=== PATIENT | female | born 1950 | race Caucasian/White ===

== ENCOUNTER 2017-10-26 12:02 | Emergency (ER) | payer MEDICARE, OTHER, SELFPAY ==
[2017-10-26 12:03] VITALS: BP 175/72; PULSE 105; RESP 18; TEMP 36.6; O2SAT 93; BMI 39.9
--- NOTE | 2017-10-26 12:16 | EKG12_ITS ---
Test Reason : SOB Blood Pressure : / mmHG Vent. Rate : 100 BPM Atrial Rate : 100 BPM P-R Int : 132 ms QRS Dur : 078 ms QT Int : 336 ms P-R-T Axes : 044 032 039 degrees QTc Int : 433 ms Normal sinus rhythm Nonspecific ST abnormality Abnormal ECG Confirmed by MONICA DUBOSE ([id number]), rewrite editor NABIL RODRIGUEZ ([id number] on 11/08/2017 5:57:37 PM Referred By: RODRICK Confirmed By:MONICA DUBOSE
[2017-10-26 12:28] VITALS: O2SAT 95
[2017-10-26 12:39] LABS: Absolute Lymphocyte Count 2.26 X10^3/ul (0.83-4.51); Absolute Neutrophil Count 11.2 X10^3/uL (2.0-7.7); Basophil# 0.01 X10^3/uL; Basophil% 0.1 % (0-1); Eosinophil# 0.03 X10^3/uL; Eosinophils% 0.2 % (0-5); Hematocrit 38.9 % (37-47); Hemoglobin 13.7 g/dl (12.0-15.0); Lymphocyte # 2.26 X10^3/ul (4.0); Lymphocyte % 15.7 % (19-41); Mean Corp Hgb Conc 35.2 g/gl (32-36); Mean Corpuscular Hgb 31.9 pg (27.0-32.0); Mean Corpuscular Volume 90.7 fL (81-99); Mean Platelet Vol. 9.3 fl (6.2-12.0); Monocyte# 0.83 X10^3/uL; Monocyte% 5.8 % (0-10); Neutrophil # 11.18 X10^3/uL (2.7-7.7); Neutrophil % 77.9 % (47-70); Platelet Count 155 K/mm3 (150-450); RBC Distribution Width SD 39.6 fl (35.1-43.9); Red Blood Count 4.29 M/mm3 (4.2-5.4); White Blood Count 14.4 K/mm3 (4.4-11.0)
[2017-10-26 12:41] LABS: POSITIVE COUNT NO; POSITIVE DIFFERENTIAL NO; POSITIVE MORPHOLOGY NO
[2017-10-26 12:57] LABS: Anion Gap 12 (5-15); BUN 13 mg/dL (7-18); BUN/Creat Ratio 15.8 RATIO (10-20); Chloride 99 mmol/L (98-107); Creatinine, Serum 0.82 mg/dL (0.55-1.02); EST Glomerular Filtration Rate 74 mL/min (>60); Est Glom Filt Rate - Afr Amer 90 mL/min (>60); Estimated Creatinine Clearance 61.55 ml/min; Glucose 172 mg/dL (74-106); Potassium 3.3 mmol/L (3.5-5.1); Sodium Level 136 mmol/L (136-145)
[2017-10-26 13:05] LABS: International Normalized Ratio 1.9
--- NOTE | 2017-10-26 13:05 | RAD_ITS ---
STUDY: X-RAY CHEST REASON FOR EXAM: Female, 67 years old. Cough, shortness of breath, chills. TECHNIQUE: PA and lateral views of the chest. COMPARISON: None. FINDINGS: Mild elevation and lobulation of the right diaphragm, which may reflect a localized show eventration of the mid diaphragm. The lungs are otherwise clear and expanded. There is no demonstrated pleural abnormality. Normal size heart. Normal mediastinum and ashely. Normal visualized pulmonary arteries. Normal visualized aortic arch and descending thoracic aorta. There are multilevel degenerative changes of the visualized thoracic spine. Normal visualized ribs, clavicles, and shoulders. There is no demonstrated abnormality of the visualized soft tissue structures of the upper abdomen. RAD/Chest PA and Lateral IMPRESSION: No acute cardiopulmonary disease. Electronically Signed: Edward Marquez MD at 13:25 EDT , Service support ,
--- NOTE | 2017-10-26 13:17 | CT_ITS ---
STUDY: CTA CHEST/THORAX REASON FOR EXAM: Female, 67 years old. Shortness of breath, cough, congestion. RADIATION DOSAGE (If Supplied By Facility): CTDIvol = ( 16.62 ) mGy, DLP = ( 707.05 ) mGycm TECHNIQUE: The examination was performed with the intravenous administration of 100ML ml of Isovue 370 contrast material. Post-processing of the angiographic images was performed, with multiplanar reformation and 3D reconstruction. Individualized dose optimization techniques were used for this CT. COMPARISON: PA and lateral chest x-ray 1236 hours. FINDINGS: Suboptimal enhancement of the main pulmonary artery and right and left pulmonary arteries for the exclusion of pulmonary emboli. Suboptimal enhancement of the bilateral peripheral pulmonary arteries. There is no overt pulmonary embolism. Normal thoracic aorta and visualized great vessels. There is no demonstrated aortic dissection. Normal heart and pericardium. There are several nonspecific lymph nodes in the mediastinum. A 2.6 x 1.5 x 1.0 cm right subcarinal lymph node present. There is mild bilateral hilar adenopathy. Normal visualized trachea and bronchi. There is mild elevation of right diaphragm. There are ill-defined groundglass infiltrates suspicious for pneumonia in the bilateral posterior basilar lower lobes. Vaguely defined 2.6 cm groundglass density in the posterior left upper lobe at the mid chest also suggests an inflammatory/infectious focus. Metal airspace disease in the anteromedial basilar right middle lobe may be subsegmental atelectasis, but additional infection difficult to exclude. Focal scar seen in the anterior superior margin of the right middle lobe, with some distortion of the adjacent minor fissure. Normal pleura. Normal chest wall structures. There are multilevel degenerative changes of the thoracic spine. There are degenerative arthrosis of the bilateral glenohumeral articulations. There is a small hiatal hernia. CT/CTA Chest W/WO Contrast IMPRESSION: 1. Bilateral posterior basilar lower lobe pneumonic infiltrates, as well as 2.6 cm groundglass site of inflammation/infection in the posterior left upper lobe, accompanied by reactive hilar and mediastinal adenopathy. 2. Small hiatal hernia. 3. Degenerative changes of the spine and shoulders. Electronically Signed: Edward Marquez MD at 14:37 EDT , Service support ,
--- NOTE | 2017-10-26 15:18 | ED.VISSUMM ---
- ER Visit Summary Date of Service: 10/26/17 Chief Complaint: Shortness of breath and cough History of Present Illness: The patient is a 67 F with cough, congestion, shortness of breath for the past 2 weeks. She is bringing up yellow colored sputum. She has had subjective fever and chills. She was seen at urgent care where her O2 sat was noted to be 89% on room air. She is given albuterol treatment with no change in her oxygen saturation. Past history significant for multiple PEs and she is currently on Coumadin. She also has history of asthma, hypertension, prior [place], and hypothyroidism. Physical Examination: Vital signs include a blood pressure 175/72, temperature 98, heart rate 105, respiratory rate 18, pulse ox 93% on room air. Head neck examination is grossly unremarkable. Heart is tachycardic and regular. Lung sounds are coarse at the left base. Good air movement noted overall. She is in no distress. Abdomen is soft nontender. Lower exam examination reveals no calf tenderness or edema. Test Results: EKG is sinus at 100 with no sign of acute ischemia. Two-view chest x-ray is unremarkable. CBC was a white count of 14.4 with 77% neutrophils. Chemistry studies show potassium 3.3 and a glucose of 172. Her INR is slightly subtherapeutic at 1.9. She states 2 weeks ago was 2.6. CT of the chest is obtained and reveals bilateral posterior lower lobe infiltrates. There is a 2.6 cm area of inflammation or infection the posterior left upper lobe also. Emergency Department Course and Treatment: Patient was observed throughout her stay. Her oxygen saturations maintained between 90 and 95% on room air. At this time she feels well. She wishes to go home. Should be given Levaquin and albuterol with specific return instructions if she worsens. Treatment Plan: [] Disposition: Discharge Impression: Community acquired pneumonia This note was generated with [employer] dictation software. It may contain incorrect words, spelling, and punctuation that were not noted in review of the chart prior to signing ED Disposition - Plan for ED Patient: Disposition: Home or Assisted Living Chief Complaint: Shortness of Breath Instructions: ED Pneumonia Adult Prescriptions: Albuterol Inhaler [Ventolin Hfa] 1 - 2 puff INHALATION Q4H PRN PRN #1 inhaler PRN Reason: Wheezing Levofloxacin [Levaquin] 750 mg PO DAILY #4 tablet Referrals: Ruel Narayanan MD [Primary Care Provider] - 1 Week
[2017-10-26] MEDS: levoFLOXacin 750 MG Tablet PO (15:30)
[2017-10-26 15:31] VITALS: BP 154/68; PULSE 89; RESP 16; O2SAT 94
== END 2017-10-26 15:35 | disposition home or self-care (01) ==
PROVIDERS: Emergency Provider Emergency Medicine; Family Provider Family Medicine; PCP Family Medicine
DX: J18.9 Pneumonia, unspecified organism (principal); E03.9 Hypothyroidism, unspecified; J45.909 Unspecified asthma, uncomplicated; I25.2 Old myocardial infarction; I10 Essential (primary) hypertension; Z86.711 Personal history of pulmonary embolism; Z79.01 Long term (current) use of anticoagulants; I25.10 Atherosclerotic heart disease of native coronary artery without angina pectoris; Z79.899 Other long term (current) drug therapy
CPT/HCPCS: 71046; 71275; 80048; 85025; 85610; 93005; 99285; Q9967; A4216

== ENCOUNTER → 2017-11-01 11:43 | Outpatient (CLI) | payer MEDICARE, OTHER, SELFPAY ==
--- NOTE | 2017-11-01 11:43 | DT_ITS ---
This patient was seen during an EMR downtime November 01, 2017 - November 08, 2017. This patient may have a combination of paper and electronic documentation or all paper documentation. All documentation is viewable within the e-chart portion of [email or web address] for each patient visit.
[2017-11-05 20:45] LABS: International Normalized Ratio 2.3; Prothrombin Time (Protime)PT. 25.3 SECONDS (11.7-14.9)
== END ==
PROVIDERS: Family Provider Family Medicine; PCP Family Medicine; Visit Provider Family Medicine
DX: I26.99 Other pulmonary embolism without acute cor pulmonale (principal); Z79.01 Long term (current) use of anticoagulants
CPT/HCPCS: 85610

== ENCOUNTER → 2019-06-13 09:30 | Outpatient (CLI) | payer MEDICARE, OTHER, SELFPAY ==
--- NOTE | 2019-06-13 10:00 | MRI_ITS ---
STUDY: MRI CERVICAL SPINE WITHOUT CONTRAST REASON FOR EXAM: Female, 68 years old. Cervical stenosis neck pain TECHNIQUE: Standardized fat and water weighted pulse sequences were obtained in the sagittal and axial planes. COMPARISON: None FINDINGS: Craniocervical junction and cervical spine are intact and aligned with normal marrow. Paravertebral soft tissues are normal. There is severe subcutaneous lipomatosis with dorsal cervical loculation. C2-C3 has a right subarticular disc endplate osteophyte with mild right-sided cord compression and severe right foraminal stenosis. Left foramen and central canal are patent. C3-C4 has patent canal. Right foramen is moderately stenotic, left foramen is patent. C4-C5 has patent canal. Foramina are moderately stenotic bilaterally. C5-C6 has mild spondylotic cord compression disc endplate osteophytes. Foramina are moderately to severely stenotic bilaterally. C6-C7 has minor cord compression with moderate left foraminal stenosis and patent right foramen. C7-T1 has patent canal and foramina. Spinal cord is normal in size and signal with mild flattening of the compressing levels. MRI/Spine Cervical (Routine) IMPRESSION: 1. Mild central C5-C6, mild right sided C2-C3 cord compression. 2. Multilevel foraminal stenoses. 3. Dorsal cervical lipodystrophy, endocrinology referral is advised. 4. Obstructive sleep apnea. Electronically Signed: Matilda Lang, at 17:57 EST Tel , Service support ,
== END ==
PROVIDERS: Family Provider Family Medicine; PCP Family Medicine
DX: M48.02 Spinal stenosis, cervical region (principal)
CPT/HCPCS: 72141

== ENCOUNTER 2024-12-05 23:47 | Inpatient (IN) | payer MEDICARE, OTHER, SELFPAY ==
[2024-12-05 23:48] VITALS: BP 194/96; PULSE 98; RESP 20; TEMP 36.4; O2SAT 97; BMI 40.2
[2024-12-06] VITALS (8 sets, daily range): BP systolic 110–190; BP diastolic 60–89; PULSE 74–96; RESP 12–18; TEMP 36.2–36.7; O2SAT 95–99; BMI 39.4
--- NOTE | 2024-12-06 00:15 | RAD_ITS ---
PROCEDURE: CHEST 1 VIEW (PORTABLE) 12/06/2024 REASON FOR EXAM: CHEST PAIN TECHNIQUE: Frontal view of the chest. COMPARISON: None FINDINGS: Both lung stahl are clear with no evidence of nodules or infiltrates. No pneumothorax or pleural effusion noted bilaterally. Heart size and its configuration appear to be within normal limits. Both the ashely appear normal. Thoracic rib cage is intact. RAD/Chest 1 View (Portable) IMPRESSION: No evidence of acute cardiopulmonary disease. Reading Location[facility] [place] [id number]
--- NOTE | 2024-12-06 00:26 | EDS_ITS ---
HPI History of Present Illness Chief Complaint: Chest Pain [facility] Medical History (Updated 12/06/24 @ 01:[address] Sy Cope, DO) Diabetes Heart attack Hypothyroid HTN (hypertension) Pulmonary embolism Clotting disorder Home Medications ?Medication ?Instructions ?Recorded ?Last Taken ?Type albuterol sulfate 90 mcg/actuation 1 - 2 puff inhalati on Q4H PRN PRN 10/26/17 Unknown Rx aerosol inhaler (Ventolin HFA) Wheezing ##1 enalapril maleate 10 mg tablet 10 mg PO DAILY 10/26/17 10/26/17 History (Vasotec) levofloxacin 750 mg tablet 750 mg PO DAILY #4 tabs Unknown Rx (Levaquin) levothyroxine 125 mcg tablet 125 mcg PO DAILY 10/26/17 10/26/17 History warfarin 2 mg tablet (Jantoven) 2 mg PO SUMOTUWETHFR 0 10/26/17 10/26/17 History warfarin 1 mg tablet (Jantoven) 1 mg PO QWEEK 12/06/24 Unknown History Allergy/AdvReac Type Severity Reaction Status Date / Time No Known Allergies Allergy Verified 12/05/24 23:49 Social History Smoking Status: Never smoker EXAM Physical Exam Const Vital Signs: 12/05/24 23:48 12/06/24 00:28 12/06/24 00:48 Temperature 97.6 F L Temperature Source Oral Pulse Rate 98 81 Respiratory Rate 20 H 12 Respiratory Effort Normal Blood Pressure 194/96 H 187/89 H Blood Pressure Mean 128 121 Pulse Ox 97 99 Oxygen Delivery Method Room Air 12/06/24 01:00 12/06/24 01:07 Temperature Temperature Source Pulse Rate 81 Respiratory Rate 14 Respiratory Effort Blood Pressure 190/86 H Blood Pressure Mean 120 Pulse Ox 98 Oxygen Delivery Method Room Air MDM MDM MDM Narrative Medical decision making narrative: HISTORY OF PRESENT ILLNESS: Chief complaint: Chest pain 74-year-old female history of PE on warfarin, hypertension, hypothyroidism presents with chest pain that radiates to left shoulder that began at 5 PM. She states she has no chest pain currently. This lasted for several minutes. Denies syncope. Denies focal numbness or weakness. Denies cough fever or chills. Notes compliance with home warfarin. No missed doses. No bleeding diathesis. No she was recently started antibiotic for UTI by her primary care physician. She notes approximately 5 episodes of loose watery stools a day for last several days. Denies abdominal pain. REVIEW OF SYSTEMS: Pertinent positives: Chest pain, diarrhea Pertinent negatives: As per [facility] PHYSICAL EXAM: Nursing triage notes reviewed, Vital signs reviewed Constitutional: please see [facility] HENT: MMM Eyes: Pupils equal round and reactive to light, Extraocular muscles intact Neck: No stridor, no JVD, full neck ROM Lungs: Clear to auscultation, No wheezing or rales. No increased work of breathing, no conversational dyspnea, no accessory muscle use, no nasal flaring. No respiratory distress noted Heart: Regular rate and rhythm, No murmurs, No rubs and No gallops, 2+ distal pulses (radial, femoral, posterior tibial) in all extremities Abdomen: Soft, there is no tenderness, rigidity, rebound or guarding, no obvious peritoneal signs, no palpable pulsatile abdominal masses, no auscultated abdominal bruit : No CVAT Extremities: No edema Neuro: No new focal neurological deficits, cranial nerves II through XII intact, 5/5 strength in all present extremities. Intact sensation to light touch in all present extremities, 2+ reflexes bilateral patella tendons. Skin: No rash or lesions noted MEDICAL DECISION MAKING: Chief Complaint: please see [facility] External records reviewed: Reviewed prior cardiovascular testing no recent cardiac catheterizations, stress test or echocardiogram as noted in the chart Factors affecting care: PE, hypertension, hypothyroidism Social determinants of health: Elderly History obtained from others: Consults: Internal medicine (Dr. Lau)?accepted patient to PCU full [facility] Narrative: The patient was initially hypertensive with a blood pressure 194/96, tachypneic with respiratory 20, saturating 97% on room air. Exam without focal cardiopulmonary normalities. No signs of focal neurologic deficit. I considered the following differential diagnosis: ACS, anemia, arrhythmia, electrolyte disturbance, PE, aortic dissection I obtained a broad lab and imaging workup to further determine if the patient was suffering from a life-threatening etiology. Initially we will try to lower the patient's blood pressure with oral lisinopril which is analogous to her home enalapril. Also ordered nitroglycerin to be given as needed for chest pain. No nitro was given because the patient was chest pain-free while in the ED. ALL IMAGES (IF OBTAINED) HAVE BEEN PERSONALLY REVIEWED AND INTERPRETED BY MY SELF. EKG with normal sinus rhythm rate 95, normal axis, normal intervals, no obvious STEMI CBC with leukocytosis suggestive of systemic summation, no anemia or thrombocytopenia noted INR slightly subtherapeutic at 1.9 BMP with severe hyponatremia with a normal blood glucose, no other significant electrolyte O'Taylor's, no sign of metabolic acidosis or endorgan hypoperfusion, no sign of acute kidney injury High-sensitivity troponin is negative, no evidence of myocardial ischemia BNP within normal no suggestive no sign of heart failure I have personally reviewed the patient's chest x-ray. Chest x-ray is unremarkable for pulmonary edema, pneumothorax, pneumonia or focal cardiopulmonary abnormality. Given severe hyponatremia will admit the patient. Suspect related to dehydration from diarrhea. Patient remained hypertensive despite oral lisinopril we will continue to monitor does not appear to be any endorgan damage. Was gone initially give 1 L normal saline bolus however hospitalist Dr. Lau recommended 150 cc infusion as opposed to bolus as does not correct her sodium too quickly. The patient and/or family, caregivers express understanding. The patient and/or family, caregivers agrees with the plan. Shared decision making: I will have a discussion with the patient and or visitors regarding risk/benefits of further testing or admission. They will be made aware of of the risk/benefits inherent in this decision they will be given the opportunity to voice understanding. Total critical care time today provided was at least 35 minutes. This excludes separately billable procedures. Critical care time (if documented) is secondary to the patient having high probability of clinically significant/life threatening deterioration in the patient's condition which required my urgent intervention. Impression: 1. Acute hyponatremia 2. Chest pain 3. Leukocytosis 4. Subtherapeutic INR Dispo: Admit to PCU for This note was generated with [employer] dictation software. It may contain incorrect words, spelling, and punctuation that were not noted in review of the chart prior to signing. Lab Data Labs: Laboratory Results - last 24 hr 12/06/24 12/06/24 00:25 00:40 WBC 14.5 H RBC 4.12 L Hgb 13.3 Hct 35.9 L MCV 87.1 MCH 32.3 H MCHC 37.0 H RDW Std Deviation 35.7 RDW Coeff of Miroslava 11.2 L Plt Count 224 MPV 9.2 Immature Gran % (Auto) 0.500 Neut % (Auto) 82.5 H Lymph % (Auto) 9.7 L [place] % (Auto) 7.0 Eos % (Auto) 0.0 Baso % (Auto) 0.3 Absolute Neuts (auto) 12.0 H Absolute Lymphs (auto) 1.41 Nucleated RBC % 0 PT 21.7 H INR 1.9 Sodium 117 L* Potassium 3.9 Chloride 82 L Carbon Dioxide 21.5 Anion Gap 13 BUN 9 Creatinine 0.76 Estim Creat Clear Calc 75.64 Est GFR (MDRD) Non-Af 84 BUN/Creatinine Ratio 12.2 Glucose 224 H Calcium 8.2 Troponin T High Sens 12 NT pro BNP II 354 Radiography Diagnostic Testing: Clinical Impression(s) from Imaging Studies Chest X-Ray 12/06/24 00:15 IMPRESSION: No evidence of acute cardiopulmonary disease. Reading Location: [place] [id number] Discharge Plan Dx/Rx/DC Orders Clinical Impression: Acute hyponatremia Disposition Disposition: Acute Care [facility]
--- NOTE | 2024-12-06 00:28 | EKG12_ITS ---
Test Reason : CP Blood Pressure : */* mmHG Vent. Rate : 95 BPM Atrial Rate : 95 BPM P-R Int : 134 ms QRS Dur : 78 ms QT Int : 334 ms P-R-T Axes : 48 37 25 degrees QTcB Int : 419 ms Normal sinus rhythm Nonspecific ST abnormality Abnormal ECG Confirmed by MARLON LIM, ALHAJI ([id number]), medical transcription editor SEJAL RIDLEY ([id number]) on 12/07/2024 6:37:59 AM Referred By: Confirmed By: ALHAJI MASON MD
[2024-12-06 00:46] LABS: Hematocrit 35.9 % (37-47); Hemoglobin 13.3 g/dL (12.0-15.0); Immature Granulocytes Count 0.070 X10^3/uL (0.0-0.0); Mean Corp Hgb Conc 37.0 g/dL (32-36); Mean Corpuscular Volume 87.1 fL (81-99); Mean Platelet Vol. 9.2 fl (6.2-12.0); NRBC Flagged by Analyzer 0 % (0-5); Platelet Count 224 K/mm3 (150-450); RBC Distribution Width CV 11.2 % (11.6-14.6); RBC Distribution Width SD 35.7 fl (35.1-43.9); Red Blood Count 4.12 M/mm3 (4.2-5.4); White Blood Count 14.5 K/mm3 (4.4-11.0)
[2024-12-06 01:02] LABS: Prothrombin Time (Protime)PT. 21.7 SECONDS (11.7-14.9)
[2024-12-06 01:32] LABS: Anion Gap 13 (5-15); BUN 9 mg/dL (4-19); BUN/Creat Ratio 12.2 RATIO (10-20); Calcium,Total 8.2 mg/dL (7.6-11.0); Carbon Dioxide 21.5 mmol/L (21.0-32.0); Chloride 82 mmol/L (98-108); Estimated Creatinine Clearance 75.64 ml/min (50-250); Glucose 224 mg/dL (70-99); Potassium 3.9 mmol/L (3.3-5.1); Pro- Brain NATRIURETIC PEPTIDE 354 pg/mL (<=900); Troponin T High Sensitivity 12 ng/L (<=14)
--- NOTE | 2024-12-06 01:56 | HP.PCM.HOS_ITS ---
HPI - General General Date of Admission: 12/06/24 Date of Service: 12/06/24 Chief Complaint: Chest pain HPI Narrative GWEN JACKSON, is a 74 F who presented to [facility] ED on 12/17/2024 with chest pain. Patient lives at home with her , has good functional status at baseline. 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 She has been compliant with her home medications. Notably patient was found to have a UTI recently and was started on Levaquin by her PCP. States she only took 1 dose of Levaquin yesterday evening thus far. However she had several episodes of loose watery stools today. She then reported chest pain radiating to the left shoulder beginning at 5 PM this evening. The pain lasted several minutes then resolved on its own. Patient denies any history of pain like this. In the ED she was hypertensive to the 190s systolic but otherwise in normal sinus rhythm and stable on room air. EKG showed normal sinus rhythm, no ST changes. Initial troponin 12. BNP normal. Labs notable for sodium 117, chloride 82. Given this hyponatremia, hospitalist was contacted for admission. I saw the patient at bedside in the ED, was present. Patient was flushed appearing in the face but otherwise sitting back comfortably in bed and in no acute distress. She reported only mild chest pain currently, improved with doses of Zofran and morphine that were given by the ED physician. She notes that her PCP Dr. Narayanan has mentioned that her sodium level runs low chronically. Unable to see her PCP notes or prior lab values. Patient denies any alcohol use. Denies significant water intake. Denies any other acute concerns currently. Will be admitted for further management. [facility] Medical History (Updated 12/06/24 @ 01:[address] Sy Cope, DO) Diabetes Heart attack Hypothyroid HTN (hypertension) Pulmonary embolism Clotting disorder Home Medications ?Medication ?Instructions ?Recorded ?Last Taken ?Type albuterol sulfate 90 mcg/actuation 1 - 2 puff inhalati on Q4H PRN PRN 10/26/17 Unknown Rx aerosol inhaler (Ventolin HFA) Wheezing ##1 enalapril maleate 10 mg tablet 10 mg PO DAILY 10/26/17 10/26/17 History (Vasotec) levofloxacin 750 mg tablet 750 mg PO DAILY #4 tabs Unknown Rx (Levaquin) levothyroxine 125 mcg tablet 125 mcg PO DAILY 10/26/17 10/26/17 History warfarin 2 mg tablet (Jantoven) 2 mg PO SUMOTUWETHFR 0 10/26/17 10/26/17 History warfarin 1 mg tablet (Jantoven) 1 mg PO QWEEK 12/06/24 Unknown History Allergy/AdvReac Type Severity Reaction Status Date / Time No Known Allergies Allergy Verified 12/05/24 23:49 Social History Smoking Status: Never smoker ROS Constitutional Constitutional: Denies chills, fatigue, fever(s) or weakness Eyes Eyes: Denies change in vision Cardiovascular Cardiovascular: Reports chest pain; Denies dyspnea on exertion, edema, lightheadedness or palpitations Respiratory/Chest Respiratory/Chest: Denies productive cough, shortness of breath at rest or wheezing Gastrointestinal Gastrointestinal: Reports loose stools; Denies abdominal pain, constipation, nausea or vomiting Genitourinary Genitourinary: Denies dysuria Musculoskeletal Musculoskeletal: Denies arthralgias or myalgias Neurologic Neurologic: Denies dizziness, focal weakness or headache(s) Vital Signs Vital Signs Vital Signs: 12/05/24 23:48 12/06/24 00:28 12/06/24 00:48 Temperature 97.6 F L Temperature Source Oral Pulse Rate 98 81 Respiratory Rate 20 H 12 Respiratory Effort Normal Blood Pressure 194/96 H 187/89 H Blood Pressure Mean 128 121 Pulse Ox 97 99 Oxygen Delivery Method Room Air 12/06/24 01:00 12/06/24 01:07 Temperature Temperature Source Pulse Rate 81 Respiratory Rate 14 Respiratory Effort Blood Pressure 190/86 H Blood Pressure Mean 120 Pulse Ox 98 Oxygen Delivery Method Room Air Weight Weight: 106.396 kg Body Mass Index (BMI) 40.2 Physical Exam Const alert, oriented x3 and no apparent distress Constitutional Narrative: Elderly female, class III obesity, mildly fatigued and flushed appearing in the face but otherwise sitting back comfortably in bed, conversing normally, in no acute distress. General Appearance: cooperative and comfortable HEENT normocephalic, head/scalp atraumatic, hearing grossly normal bilaterally, nasal mucous membranes and turbinates normal and moist oral mucous membranes Eyes PERRL, EOMs intact bilaterally and conjunctivae normal Neck full ROM Chest inspection of chest normal Resp normal respiratory effort, normal air movement, no use of accessory muscles and clear to auscultation bilaterally Cardio regular rate, regular rhythm, no murmurs and peripheral pulses 2+ throughout GI normal to inspection, nondistended, normoactive bowel sounds, soft to palpation, non-tender and non-distended Back/Spine normal ROM Extremity normal to inspection, full ROM and no pedal edema Skin no rashes or lesions noted Neuro oriented x3, moves all extremities and no focal motor deficits Speech: speech normal Motor Exam: strength 5/5 throughout Psych mental status grossly normal Results Lab / Micro Data 12/06/24 00:25 12/06/24 00:25 Labs: Laboratory Results - last 24 hr 12/06/24 00:25: WBC 14.5 H, RBC 4.12 L, Hgb 13.3, Hct 35.9 L, MCV 87.1, MCH 32.3 H, MCHC 37.0 H, RDW Std Deviation 35.7, RDW Coeff of Miroslava 11.2 L, Plt Count 224, MPV 9.2, Immature Gran % (Auto) 0.500, Neut % (Auto) 82.5 H, Lymph % (Auto) 9.7 L, Bl[place] % (Auto) 7.0, Eos % (Auto) 0.0, Baso % (Auto) 0.3, Absolute Neuts (auto) 12.0 H, Absolute Lymphs (auto) 1.41, Nucleated RBC % 0, Sodium 117 L*, Potassium 3.9, Chloride 82 L, Carbon Dioxide 21.5, Anion Gap 13, BUN 9, Creatinine 0.76, Estim Creat Clear Calc 75.64, Est GFR (MDRD) Non-Af 84, BUN/Creatinine Ratio 12.2, Glucose 224 H, Calcium 8.2, Troponin T High Sens 12, NT pro BNP II 354 12/06/24 00:40: PT 21.7 H, INR 1.9 Imaging Radiology Impression Chest X-Ray 12/06/24 00:15 IMPRESSION: No evidence of acute cardiopulmonary disease. Reading Location: [place] [id number] Assessment & Plan Assessment/Plan (1) Acute hyponatremia: PLAN: Plan Patient is a 74-year-old female who presented to [facility] ED on 12/06/2024 with chest pain. 1. Suspected acute on chronic hyponatremia ? Admit under inpatient status to PCU. Sodium 117, chloride 82 on admit. No mental status change, no seizure activity noted. Last sodium in our system from 2018 was 136 but patient states her PCP has noted that her sodium chronically runs low. Serum osmolality, urine osmolality and urine sodium levels ordered for further evaluation. Suspect primarily due to dehydration from loose stools while on antibiotics for UTI. Will treat with normal saline 150 ml/hr for now. Monitor BMP every 6 hours. Fluid restriction of 2 L ordered. 2. Chest pain with accelerated hypertension ? Unclear etiology for chest pain but may be secondary to hypertension. Hypertensive to the 190s systolic in the ED. Initial troponin negative, repeat pending. EKG with normal sinus rhythm and no ST changes. Chest x-ray normal. On warfarin with INR 1.9 as below. Given dose of 40 mg of lisinopril in the ED. Will continue home ISIDRA inhibitor and start IV hydralazine as needed for SBP greater than 170. Echocardiogram ordered for further evaluation. 3. Hyperglycemia ? Blood glucose 224 on admit. A1c ordered. If A1c elevated consistent with diabetes, recommend starting sliding scale insulin with meals with other orders per subcu insulin order set. 4. History of VTE on warfarin ? INR 1.9 on admit. Continue home warfarin. Follow-up INR tomorrow. 5. Hypothyroidism ? TSH ordered. Continue home Synthroid. 6. Class III obesity ? BMI 40 on admit. Complicates hospital course, care and prognosis. DVT prophylaxis: Not indicated, on warfarin CODE STATUS: Full code, verified Expected disposition: Home, TBD Total clinical time spent by myself addressing the patient's medical issues, reviewing all the data, and collaborating with patient's care team: 75 minutes. Charges/Coding Visit Charges Inpatient E&M: 11034 Init Hosp L3
[2024-12-06] MEDS: 0.9% Normal Saline (1000mL) 1,000 ML 150 ML IV (02:19)
--- NOTE | 2024-12-06 02:31 | ECHOCS_ITS ---
Reason For Study Reason For Study: Chest Pain Procedure This was a 2D Doppler, Color Flow transthoracic echocardiogram. The study was technically difficult. Contrast injection was performed. Exam performed portable in patient room. Left Ventricle Normal LV size. Left ventricular systolic function is normal. The left ventricular ejection fraction is 60 %. Stage 1 diastolic dysfunction. No regional wall motion abnormalities noted. Right Ventricle Normal RV size. Normal systolic function. Atria Normal left atrium. Normal right atrium. Mitral Valve Normal mitral valve. Tricuspid Valve Normal tricuspid valve. Aortic Valve Trisinus/trileaflet aortic valve. Pulmonic Valve Normal pulmonic valve. Great Vessels Normal aortic root. The pulmonary artery is normal size. Normal inferior vena cava. Pericardium/Pleural No pericardial effusion. Medication Diluted definity 1ml given slow IV push to enhance endocardial definition. MMode/2D Measurements & Calculations LVIDd: 5.2 cm IVSd: 0.92 cm Ao root diam: 2.8 cm LVIDs: 3.2 cm LVPWd: 0.84 cm FS: 38.1 % LAV(MOD-bp): 49.3 ml LVAd ap4: 31.5 cm2 SV(MOD-sp4): 58.6 ml LAV(MOD-bp) Indexed: 23.5 ml/m2 LVLd ap4: 7.6 cm SI(MOD-sp4): 27.9 ml/m2 LAV(MOD-sp2): 43.7 ml EDV(MOD-sp4): 104.9 ml LAV(MOD-sp4): 47.8 ml EDV(sp4-el): 110.5 ml LVAs ap4: 19.5 cm2 LVLs ap4: 6.9 cm ESV(MOD-sp4): 46.2 ml ESV(sp4-el): 47.2 ml EF(MOD-sp4): 55.9 % EF(sp4-el): 57.3 % SV(sp4-el): 63.3 ml LA A4 area: 17.9 cm2 LA dimension(2D): 4.0 cm RA A4 area: 15.1 cm2 TAPSE: 1.9 cm Time Measurements MV dec time: 0.18 sec Doppler Measurements & Calculations MV E max brain: 75.5 cm/sec Lat Peak E' Brain: 9.1 cm/sec Med Peak E' Brain: 11.4 cm/sec MV A max brain: 113.9 cm/sec E/E' lat: 8.3 E/E' med: 6.6 MV E/A: 0.66 MV V2 max: 115.5 cm/sec MV P1/2t max brain: 82.5 cm/sec Ao V2 max: 116.2 cm/sec MV max P.3 mmHg MV P1/2t: 59.4 msec Ao max P.4 mmHg MV V2 mean: 56.1 cm/sec MV dec slope: 406.8 cm/sec2 Ao V2 mean: 83.9 cm/sec MV mean P.5 mmHg MVA(P1/2t): 3.7 cm2 Ao mean P.1 mmHg MV V2 VTI: 23.4 cm Ao V2 VTI: 27.1 cm AV (velocity ratio): 1.0 LV V1 max: 108.0 cm/sec LV V1 max P.7 mmHg LV V1 mean P.7 mmHg LV V1 mean: 77.8 cm/sec LV V1 VTI: 27.8 cm ECHO/Echo Complete W/ Contrast Interpretation Summary Normal LV size. Left ventricular systolic function is normal. The left ventricular ejection fraction is 60 %. Stage 1 diastolic dysfunction. Contrast injection was performed. Ordering Physician: Malcolm Lau Performed By: Darell Ferrara and Student
[2024-12-06 04:05] LABS: Mucous, Urine 0 SEEN /hpf (<or=2+); Red Blood Cells-Urine 0 SEEN /hpf (0-5)
[2024-12-06 04:08] LABS: Color, Urine Yellow (Yellow); Glucose, Dipstick 100 mg/dl (Normal); Ketone-Dipstick 5 mg/dl (Negative); Leukocyte Esterase-Dipstick 500 /ul (Negative); Nitrite-Dipstick Negative (Negative); Occult Blood-Urine 10 /ul (Negative); Protein-Dipstick 30 mg/dl (Negative); Specific Gravity, Urine 1.015 (1.002-1.030); Urine Bilirubin Dipstick Negative (Negative)
[2024-12-06 04:25] LABS: Squamous Epithelial Cells - UA 0-5 SEEN /hpf (5-10)
[2024-12-06 04:29] LABS: Troponin T High Sens 2 HR 10 ng/L (<=14)
[2024-12-06 04:38] LABS: Osmolality, Urine 257 mOsm/KG
[2024-12-06 05:16] LABS: Osmolality, Serum 257 mOsm/KG (280-301)
[2024-12-06 05:26] LABS: Troponin T High Sens 4 HR 10 ng/L (<=14)
[2024-12-06 06:38] LABS: Anion Gap 10 (5-15); BUN 7 mg/dL (4-19); BUN/Creat Ratio 10.3 RATIO (10-20); Calcium,Total 7.9 mg/dL (7.6-11.0); Carbon Dioxide 23.0 mmol/L (21.0-32.0); Chloride 87 mmol/L (98-108); Estimated Creatinine Clearance 77.55 ml/min (50-250); Glucose 172 mg/dL (70-99); Potassium 3.9 mmol/L (3.3-5.1)
--- NOTE | 2024-12-06 10:07 | CASEMGMT ---
Dx: Acute Hyponatremia LACE: 1 6-Clicks: 20 Medical record reviewed and patient evaluated for identification of discharge planning needs. Based on this review, at this time criteria are not present to indicate a need for discharge planning. Will remain available to assist with discharge planning needs as identified or requested.
[2024-12-06] MEDS: 0.9% Saline Lock 10 ML Syringe IV (10:43)
--- NOTE | 2024-12-06 11:38 | PCM.CONS.R ---
Assessment & Plan Assessment/Plan (1) Acute hyponatremia: PLAN: Hyponatremia. Chronic mild hyponatremia, sodium values were around 1 30-134. Reviewed workup from outpatient. TSH was 0.45 or so. Cortisol 9.1. Urine sodium more than 20, urine osmolality more than 100. 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 Etiology unclear. She is not on any medications that can potentially cause SIADH. No [id number] supplements. Non-smoker. Will get a CT chest to rule out pulmonary malignancy. Likely discharge home with salt tablets. Sodium correction 6 to 8 mEq a day. HPI Consult Data Date of Consult: 12/06/24 HPI Narrative Reason for Consultation: Hyponatremia HPI Narrative: GWEN JACKSON, is a 74 F who presents to the hospital with muscle cramps, weakness. Nephrology on consultation in view of hyponatremia. Her primary care physician is Dr. Narayanan. Reviewed records from [facility]. She has longstanding history of mild hyponatremia, sodium values between 130 and 134. She has had these values for at least 2 years that I could see. Previous workup included a TSH which was low normal, cortisol 9.1. She is not on any medications that can potentially cause SIADH. She was asked to restrict free water, drink mostly electrolyte liquids and thick liquids. She has been following that as advised. Last week she had symptoms consistent with UTI, was prescribed Augmentin. She is not sure if she took Augmentin before. Over the last 1 to 2 days, she had some stomach upset, muscle cramps, weakness. Came in with a sodium of 117. Serum osmolality was low at 257. No lower extremity edema. [facility] Medical History (Updated 12/06/24 @ 01:[address] Sy Cope, DO) Diabetes Heart attack Hypothyroid HTN (hypertension) Pulmonary embolism Clotting disorder Home Medications ?Medication ?Instructions ?Recorded ?Last Taken ?Type albuterol sulfate 90 mcg/actuation 1 - 2 puff inhalation Q4H PRN PRN 10/26/17 Unknown Rx aerosol inhaler (Ventolin HFA) Wheezing ##1 enalapril maleate 10 mg tablet 10 mg PO DAILY 10/26/17 10/26/17 History (Vasotec) levofloxacin 750 mg tablet 750 mg PO DAILY #4 tabs 10/26/17 Unknown Rx (Levaquin) levothyroxine 125 mcg tablet 125 mcg PO DAILY 10/26/17 10/26/17 History warfarin 2 mg tablet (Jantoven) 2 mg PO SUMOTUWETHFR 10/26/17 10/26/17 History warfarin 1 mg tablet (Jantoven) 1 mg PO QWEEK 12/06/24 Unknown History Allergy/AdvReac Type Severity Reaction Status Date / Time No Known Allergies Allergy Verified 12/05/24 23:49 Social History Smoking Status: Never smoker ROS ROS Narrative Negative except above Physical Exam Narrative Alert awake oriented x 3 no obvious distress no pallor no icterus no JVD s1s2 no murmurs lungs clear abdomen soft no organomegaly no edema no cyanosis Lab / Micro Data 12/06/24 00:25 12/06/24 06:00 Labs: Laboratory Results - last 24 hr 12/06/24 00:25: WBC 14.5 H, RBC 4.12 L, Hgb 13.3, Hct 35.9 L, MCV 87.1, MCH 32.3 H, MCHC 37.0 H, RDW Std Deviation 35.7, RDW Coeff of Miroslava 11.2 L, Plt Count 224, MPV 9.2, Immature Gran % (Auto) 0.500, Neut % (Auto) 82.5 H, Lymph % (Auto) 9.7 L, [place] % (Auto) 7.0, Eos % (Auto) 0.0, Baso % (Auto) 0.3, Absolute Neuts (auto) 12.0 H, Absolute Lymphs (auto) 1.41, Nucleated RBC % 0, Sodium 117 L*, Potassium 3.9, Chloride 82 L, Carbon Dioxide 21.5, Anion Gap 13, BUN 9, Creatinine 0.76, Estim Creat Clear Calc 75.64, Est GFR (MDRD) Non-Af 84, BUN/Creatinine Ratio 12.2, Glucose 224 H, Hemoglobin A1c 7.5 H, Calcium 8.2, Troponin T High Sens 12, NT pro BNP II 354 12/06/24 00:40: PT 21.7 H, INR 1.9 12/06/24 02:55: Troponin T Hi Sens 2 Hr 10 12/06/24 03:55: Urine Color Yellow, Urine Clarity Clear, Urine pH 8.0, Ur Specific [place] 1.015, Urine Protein 30 H, Urine Glucose (UA) 100 H, Urine Ketones 5 H, Urine Occult Blood 10 H, Urine Nitrite Negative, Urine Bilirubin Negative, Urine Urobilinogen Normal, Ur Leukocyte Esterase 500 H, Urine RBC 0 SEEN, Urine WBC >100 SEEN, Ur Squamous Epith Cells 0-5 SEEN, Urine Bacteria 1+, Urine Mucus 0 SEEN, Urine Osmolality 257, Ur Random Sodium 81 12/06/24 04:29: Serum Osmolality 257 L, Troponin T Hi Sens 4Hr 10 12/06/24 06:00: Sodium 120 L, Potassium 3.9, Chloride 87 L, Carbon Dioxide 23.0, Anion Gap 10, BUN 7, Creatinine 0.69 L, Estim Creat Clear Calc 77.55, Est GFR (MDRD) Non-Af 92, BUN/Creatinine Ratio 10.3, Glucose 172 H, Calcium 7.9 Imaging Radiology Impression Chest X-Ray 12/06/24 00:15 IMPRESSION: No evidence of acute cardiopulmonary disease. Reading [facility]
--- NOTE | 2024-12-06 12:00 | CT_ITS ---
PROCEDURE: CHEST WITH CONTRAST 12/06/2024 REASON FOR EXAM: SIADH. RULE OUT LUNG MALIGNANCY. Chest pain. TECHNIQUE: CHEST WITH CONTRAST Coronal and Sagittal reconstruction series were provided. CONTRAST: Isovue-300 VOLUME: 100 mL One or more dose reduction techniques were used (e.g., Automated exposure control, adjustment of the mA and/or kV according to patient size, use of iterative reconstruction technique). RADIATION DOSE SUMMARY: CTDlvol: 5.8 mGy DLP: 860.1 mGycm COMPARISON: Prior chest radiograph done earlier in the day. FINDINGS: Hardware: EKG electrodes. Lymph nodes: No significant mediastinal lymphadenopathy is seen. Heart and Vasculature: Normal heart size. No pericardial effusion. No coronary artery calcification. Lungs and Airways: Increased linear markings in the superior aspect of the right lung suggestive of linear atelectasis and/or scarring. Minimal atelectasis at the lung bases. Pleura: No pleural effusion. Upper Abdomen: Diffuse fatty infiltration of the liver. Bones: Degenerative changes of the thoracic spine. Increased kyphosis. CT/Chest WITH Contrast IMPRESSION: Coronary artery calcification (CAC) is is absent No acute abnormality is seen. Reading Location: [place] [id number]
[2024-12-06 12:42] LABS: Anion Gap 11 (5-15); BUN 7 mg/dL (4-19); BUN/Creat Ratio 8.8 RATIO (10-20); Calcium,Total 8.3 mg/dL (7.6-11.0); Carbon Dioxide 22.1 mmol/L (21.0-32.0); Chloride 89 mmol/L (98-108); Estimated Creatinine Clearance 77.55 ml/min (50-250); Glucose 143 mg/dL (70-99); Potassium 4.1 mmol/L (3.3-5.1)
[2024-12-06] MEDS: Jantoven 2 MG Tablet PO (16:45)
--- NOTE | 2024-12-06 18:27 | PCM.HOSP.N ---
Hospitalist Note Patient was seen and examined today, I had nephrology see the patient due to her hyponatremia, she was placed on oral sodium chloride. Patient's cardiac enzymes were unremarkable. She states that the last time she had a stress test it was a chemical stress test and when the chemical was injected, she had facial swelling and severe flushing. It appears that if pain dobutamine stress echo which cannot be performed at this time due to staffing issues. Patient will have to undergo a workup for chest pain as an outpatient. Patient's INR on admission was subtherapeutic, I have elected to give her an additional amount of warfarin. INR will be rechecked tomorrow
[2024-12-06 18:37] LABS: Anion Gap 11 (5-15); BUN 9 mg/dL (4-19); BUN/Creat Ratio 11.2 RATIO (10-20); Calcium,Total 8.5 mg/dL (7.6-11.0); Carbon Dioxide 21.9 mmol/L (21.0-32.0); Chloride 90 mmol/L (98-108); Estimated Creatinine Clearance 75.66 ml/min (50-250); Glucose 160 mg/dL (70-99); Potassium 3.9 mmol/L (3.3-5.1)
[2024-12-07 04:00] VITALS: BP 141/69; PULSE 70; RESP 16; TEMP 36.7; O2SAT 100
[2024-12-07 06:20] LABS: Hematocrit 37.3 % (37-47); Hemoglobin 13.2 g/dL (12.0-15.0); Mean Corp Hgb Conc 35.4 g/dL (32-36); Mean Corpuscular Volume 90.8 fL (81-99); Mean Platelet Vol. 9.3 fl (6.2-12.0); Platelet Count 243 K/mm3 (150-450); RBC Distribution Width CV 11.7 % (11.6-14.6); RBC Distribution Width SD 38.5 fl (35.1-43.9); Red Blood Count 4.11 M/mm3 (4.2-5.4); White Blood Count 8.0 K/mm3 (4.4-11.0)
[2024-12-07 06:25] LABS: Prothrombin Time (Protime)PT. 22.5 SECONDS (11.7-14.9)
[2024-12-07 06:50] LABS: Anion Gap 11 (5-15); BUN 11 mg/dL (4-19); BUN/Creat Ratio 12.5 RATIO (10-20); Calcium,Total 8.6 mg/dL (7.6-11.0); Carbon Dioxide 24.4 mmol/L (21.0-32.0); Chloride 91 mmol/L (98-108); Estimated Creatinine Clearance 72.99 ml/min (50-250); Glucose 125 mg/dL (70-99); Potassium 3.8 mmol/L (3.3-5.1)
[2024-12-07 10:06] VITALS: BP 140/66; PULSE 74; RESP 18; TEMP 36.7; O2SAT 98
--- NOTE | 2024-12-07 15:35 | PN.RENAL_ITS ---
Subjective Subjective no new complaints Objective Data Objective Data Vital Signs: Vital Signs Temp Pulse Resp BP Pulse Ox O2 Del Method 98.0 F 74 18 140/66 H 98 Room Air 12/07/24 10:06 12/07/24 10:06 12/07/24 10:06 12/07/24 10:06 12/07/24 10:06 12/07/24 10:06 Oxygen Delivery Method Room Air Weight: 107.7 kg Body Mass Index (BMI) 39.4 Intake & Output: Intake and Output for Last 24 Hours 12/05/24 12/06/24 12/07/24 23:59 23:59 23:59 Intake Total 1660 / 1660 420 / 420 Balance 1660 / 1660 420 / 420 Lab / Micro Data 12/07/24 05:22 12/07/24 05:22 Labs: Laboratory Results - last 24 hr 12/06/24 17:38: Sodium 123 L, Potassium 3.9, Chloride 90 L, Carbon Dioxide 21.9, Anion Gap 11, BUN 9, Creatinine 0.82, Estim Creat Clear Calc 75.66, Est GFR (MDRD) Non-Af 76, BUN/Creatinine Ratio 11.2, Glucose 160 H, Calcium 8.5 12/06/24 17:51: POC Glucose 171 H 12/06/24 22:22: POC Glucose 167 H 12/07/24 05:22: WBC 8.0, RBC 4.11 L, Hgb 13.2, Hct 37.3, MCV 90.8, MCH 32.1 H, MCHC 35.4, RDW Std Deviation 38.5, RDW Coeff of Miroslava 11.7, Plt Count 243, MPV 9.3, PT 22.5 H, INR 1.9, Sodium 127 L, Potassium 3.8, Chloride 91 L, Carbon Dioxide 24.4, Anion Gap 11, BUN 11, Creatinine 0.85, Estim Creat Clear Calc 72.99, Est GFR (MDRD) Non-Af 73, BUN/Creatinine Ratio 12.5, Glucose 125 H, Calcium 8.6 12/07/24 06:31: POC Glucose 140 H 12/07/24 11:34: POC Glucose 237 H Radiography Diagnostic Testing: Radiology Impression Echocardiogram 12/06/24 02:31 Interpretation Summary Normal LV size. Left ventricular systolic function is normal. The left ventricular ejection fraction is 60 %. Stage 1 diastolic dysfunction. Contrast injection was performed. Ordering Physician: Malcolm Lau Performed By: Daerll Ferrara and Student Physical Exam Narrative Alert awake oriented x 3 no obvious distress no pallor no icterus no JVD s1s2 no murmurs lungs clear abdomen soft no organomegaly no edema no cyanosis Assessment & Plan Assessment/Plan (1) Acute hyponatremia: PLAN: Hyponatremia. Chronic mild hyponatremia, sodium values were around 1 30- 134. Reviewed workup from outpatient. TSH was 0.45 or so. Cortisol 9.1. Urine sodium more than 20, urine osmolality more than 100. 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 Etiology unclear. She is not on any medications that can potentially cause SIADH. No [id number] supplements. Non-smoker. CT chest with no evidence of malignancy Started salt tablets. sodium better will dc with salt tablets. will arrange follow up after 1-2 weeks after dc to see if she still needs salt tablets
[2024-12-07 16:00] VITALS: BP 139/51; PULSE 80; RESP 16; TEMP 36.3; O2SAT 98
--- NOTE | 2024-12-07 17:33 | PCM.PN.HOSP ---
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 Sodium was better today, I will recheck a BMP tomorrow. Patient's echocardiogram was normal. Objective Data Objective Data Vital Signs: Vital Signs Temp Pulse Resp BP Pulse Ox O2 Del Method 97.4 F L 80 16 139/51 H 98 Room Air 12/07/24 16:00 12/07/24 16:00 12/07/24 16:00 12/07/24 16:00 12/07/24 16:00 12/07/24 16:00 Oxygen Delivery Method Room Air Weight: 107.7 kg Body Mass Index (BMI) 39.4 Intake & Output: Intake and Output for Last 24 Hours 12/05/24 12/06/24 12/07/24 23:59 23:59 23:59 Intake Total 1660 / 1660 420 / 420 Balance 1660 / 1660 420 / 420 Lab / Micro Data 12/07/24 05:22 12/07/24 05:22 Labs: Laboratory Results - last 24 hr 12/06/24 17:38: Sodium 123 L, Potassium 3.9, Chloride 90 L, Carbon Dioxide 21.9, Anion Gap 11, BUN 9, Creatinine 0.82, Estim Creat Clear Calc 75.66, Est GFR (MDRD) Non-Af 76, BUN/Creatinine Ratio 11.2, Glucose 160 H, Calcium 8.5 12/06/24 17:51: POC Glucose 171 H 12/06/24 22:22: POC Glucose 167 H 12/07/24 05:22: WBC 8.0, RBC 4.11 L, Hgb 13.2, Hct 37.3, MCV 90.8, MCH 32.1 H, MCHC 35.4, RDW Std Deviation 38.5, RDW Coeff of Miroslava 11.7, Plt Count 243, MPV 9.3, PT 22.5 H, INR 1.9, Sodium 127 L, Potassium 3.8, Chloride 91 L, Carbon Dioxide 24.4, Anion Gap 11, BUN 11, Creatinine 0.85, Estim Creat Clear Calc 72.99, Est GFR (MDRD) Non-Af 73, BUN/Creatinine Ratio 12.5, Glucose 125 H, Calcium 8.6 12/07/24 06:31: POC Glucose 140 H 12/07/24 11:34: POC Glucose 237 H 12/07/24 16:02: POC Glucose 196 H Radiography Diagnostic Testing: Radiology Impression Echocardiogram 12/06/24 02:31 Interpretation Summary Normal LV size. Left ventricular systolic function is normal. The left ventricular ejection fraction is 60 %. Stage 1 diastolic dysfunction. Contrast injection was performed. Ordering Physician: Malcolm Lau Performed By: Darell Ferrara and Student Physical Exam Const alert, oriented x3 and no apparent distress General Appearance: cooperative, well kempt and well developed Orientation / Consciousness: awake, oriented to person, oriented to place and oriented to time HEENT normocephalic, head/scalp atraumatic and moist oral mucous membranes Eyes PERRL, EOMs intact bilaterally and conjunctivae normal Neck supple, no JVD, thyroid normal and no carotid bruits General: trachea midline Resp normal respiratory effort, no retractions, no use of accessory muscles and clear to auscultation bilaterally Auscultation: Negative for rales, rhonchi or wheezes Cardio regular rate, regular rhythm, S1 normal heart sound, S2 normal heart sound, no murmurs, no rub and no gallops Cardio Narrative: There is ectopy noted on auscultation of the heart, telemetry showed PACs, no evidence of A-fib GI normal to inspection, nondistended, normoactive bowel sounds, soft to palpation, non-tender and non-distended Extremity no clubbing, cyanosis or edema Skin no rashes or lesions noted General Skin Exam: no breakdown Neuro oriented x3, CN's II-XII intact bilaterally, moves all extremities, no focal motor deficits and no sensory deficits noted Sensorium / Orientation: awake and alert Speech: speech normal Psych affect normal Assessment & Plan Assessment/Plan (1) Acute hyponatremia: PLAN: Plan 1. Hyponatremia-secondary to SIADH-continue sodium chloride tablets, BMP will be rechecked tomorrow #2 chest pain-etiology unclear, we are unable to have the patient undergo a dobutamine stress test due to staffing issues, she will need to talk to her PCP about ordering the test as an outpatient. Patient's cardiac enzymes were unremarkable. #3 essential hypertension-patient is on Vasotec #4 type 2 diabetes-patient is on Januvia #5 hypothyroidism-patient is on Synthroid #6 chronic use of anticoagulation-patient is on warfarin, her INR is 1.9, I will give extra warfarin today and recheck her INR tomorrow Total clinical time spent by myself addressing the patient's medical issues, reviewing all of her data, and collaborating with patient's care team: 35 minutes Charges/Coding Visit Charges Inpatient E&M: 41291 Subs Hosp L2
[2024-12-07] MEDS: Jantoven 2 MG Tablet PO (17:55)
[2024-12-07] MEDS: 0.9% Saline Lock 10 ML Syringe IV (21:08)
[2024-12-07 22:00] VITALS: BP 151/65; PULSE 80; RESP 16; TEMP 36.8; O2SAT 98
[2024-12-08 04:30] VITALS: BP 186/90; PULSE 76; RESP 16; TEMP 36.7; O2SAT 98
[2024-12-08 05:10] VITALS: BP 186/90; PULSE 76
[2024-12-08] MEDS: 0.9% Saline Lock 10 ML Syringe IV ×2 (05:11→06:45)
[2024-12-08 06:39] VITALS: BP 163/83
[2024-12-08 07:07] LABS: Prothrombin Time (Protime)PT. > 120.0 SECONDS (11.7-14.9)
[2024-12-08 07:17] LABS: Anion Gap 14 (5-15); BUN 9 mg/dL (4-19); BUN/Creat Ratio 12.2 RATIO (10-20); Calcium,Total 8.4 mg/dL (7.6-11.0); Carbon Dioxide 22.4 mmol/L (21.0-32.0); Chloride 94 mmol/L (98-108); Estimated Creatinine Clearance 77.55 ml/min (50-250); Glucose 157 mg/dL (70-99); Potassium 4.1 mmol/L (3.3-5.1)
[2024-12-08 08:20] VITALS: BP 188/90; PULSE 95; RESP 16; TEMP 36.6; O2SAT 97
[2024-12-08 10:30] VITALS: BP 177/95
--- NOTE | 2024-12-08 11:56 | DCINST_ITS ---
Discharge Instructions Diet Discharge Diet: 1800 Calorie Control Diet DC O2, CPAP, BIPAP needs Home O2 Discharge instructions: No Dressing / Incision Discharge Activity: Return to Normal Activity Weight Bearing Status: Full weight bearing Follow Up Care Test Results: Test results from this visit will be discussed in further detail at your follow- up appointment, if applicable. Discharge Plan Admission Admit Date/Time: 12/06/24 01:59 Primary Reason for Your Visit: low sodium, chest pain Attending Provider: Armando Almeida Primary Care Provider: Ruel Narayanan Consulting Providers: Malcolm Lau; Reyna Calzada Discharge Orders/Prescriptions Prescriptions: New cephalexin 500 mg Capsule 500 mg PO 3XD Qty: 15 0RF sodium chloride 1,000 mg Tablet,Soluble 1,000 mg PO DAILY Qty: 30 0RF Continued levothyroxine 125 MCG tablet 125 mcg PO DAILY warfarin [Jantoven] 2 MG tablet 2 mg PO .[place],Tue,TH,Sat albuterol sulfate [Ventolin HFA] 1 INHALER inhaler 1 - 2 puff inhalation Q4H PRN PRN (Reason: Wheezing) Qty: 1 0RF Januvia 100 mg tablet 100 mg PO DAILY omeprazole 40 mg capsule,delayed release(DR/EC) 40 mg PO DAILY Complex B-100 Tablet Extended Release 1 tab PO DAILY enalapril maleate [Vasotec] 10 MG tablet 10 mg PO DAILY Qty: 1 0RF Rx Instructions: Increase enalapril to 10 mg twice daily warfarin [Jantoven] 1 mg tablet 1 mg PO .M,W,F Qty: 1 0RF Rx Instructions: restart 12/09/24 Discontinued levofloxacin [Levaquin] 750 MG tablet 750 mg PO DAILY Referrals / Follow Up: Ruel Narayanan MD [Primary Care Provider] - Within 2 Weeks (have him recheck your sodium, he will need to set you up for an ECHO stress test with Dobutamine in order to rule out coronary disease ) Disposition Disposition (needs filled in before D/C Order can be placed): Home, Self Care
--- NOTE | 2024-12-08 12:00 | PN.RENAL_ITS ---
Subjective Subjective no new events Objective Data Objective Data Vital Signs: Vital Signs Temp Pulse Resp BP Pulse Ox O2 Del Method 97.9 F 95 16 177/95 H 97 Room Air 12/08/24 08:20 12/08/24 08:20 12/08/24 08:20 12/08/24 10:30 12/08/24 08:20 12/08/24 08:30 Oxygen Delivery Method Room Air Weight: 107.7 kg Body Mass Index (BMI) 39.4 Intake & Output: Intake and Output for Last 24 Hours 12/06/24 12/07/24 12/08/24 23:59 23:59 23:59 Intake Total 1660 / 1660 840 / 940 400 / 400 Balance 1660 / 1660 840 / 940 400 / 400 Lab / Micro Data 12/07/24 05:22 12/08/24 06:25 Labs: Laboratory Results - last 24 hr 12/07/24 11:34: POC Glucose 237 H 12/07/24 16:02: POC Glucose 196 H 12/07/24 21:05: POC Glucose 186 H 12/08/24 06:25: PT > 120.0 H, INR > 19.5 H*, Sodium 130 L, Potassium 4.1, C hloride 94 L, Carbon Dioxide 22.4, Anion Gap 14, BUN 9, Creatinine 0.70, Estim Creat Clear Calc 77.55, Est GFR (MDRD) Non-Af 92, BUN/Creatinine Ratio 12.2, G lucose 157 H, Calcium 8.4 12/08/24 06:29: POC Glucose 160 H Physical Exam Narrative Alert awake oriented x 3 no obvious distress no pallor no icterus no JVD s1s2 no murmurs lungs clear abdomen soft no organomegaly no edema no cyanosis Assessment & Plan Assessment/Plan (1) Acute hyponatremia: PLAN: Hyponatremia. Chronic mild hyponatremia, sodium values were around 1 30- 134. Reviewed workup from outpatient. TSH was 0.45 or so. Cortisol 9.1. Urine sodium more than 20, urine osmolality more than 100. 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 Etiology unclear. She is not on any medications that can potentially cause SIADH. No aldv-pty-csfzwkd supplements. Non-smoker. CT chest with no evidence of malignancy Started salt tablets. sodium better Sodium is up to 130 today. Asymptomatic. Potential discharge plans. INR came back significantly high, not sure if it is an accurate value. Repeat INR pending. Discussed with family at bedside. No obvious signs of bleeding
[2024-12-08 12:05] VITALS: BP 165/77; PULSE 74; RESP 16; TEMP 36.2; O2SAT 99
--- NOTE | 2024-12-08 12:05 | PCM.DC.SUM ---
Providers Date of Admission: 12/06/24 Date of Discharge: 12/08/24 Primary Care Physician: Dr. Ruel Narayanan MD Consultations 12/06/24 07:54 Consult: Nephrology Routine Consulting Provider: Reyna Calzada Reason for Consult: hyponatremia EMERGENT Consult: No MD Notified: Yes Date Notified: 12/06/24 Time Notified: 07:54 Method of Notification: Verbal Reason For Visit: ACUTE HYPONATREMIA Diagnosis Discharge Diagnosis (1) Acute hyponatremia: Status: Acute Code(s): E87.1 - Hypo-osmolality and hyponatremia Plan 1. Hyponatremia-secondary to SIADH-continue sodium chloride tablets, BMP will be rechecked tomorrow #2 chest pain-etiology unclear, we are unable to have the patient undergo a dobutamine stress test due to staffing issues, she will need to talk to her PCP about ordering the test as an outpatient. Patient's cardiac enzymes were unremarkable. #3 essential hypertension-patient is on Vasotec #4 type 2 diabetes-patient is on Januvia #5 hypothyroidism-patient is on Synthroid #6 chronic use of anticoagulation-patient is on warfarin, her INR is 1.9, I will give extra warfarin today and recheck her INR tomorrow Total clinical time spent by myself addressing the patient's medical issues, reviewing all of her data, and collaborating with patient's care team: 35 minutes Medications at Discharge Home Medications albuterol sulfate 90 mcg/actuation aerosol inhaler (Ventolin HFA) 1 - 2 puff inhalation Q4H PRN PRN Wheezing ##1 10/26/17 levothyroxine 125 mcg tablet 125 mcg PO DAILY thyroid 10/26/17 warfarin 2 mg tablet (Jantoven) 2 mg PO .[place]ancock,Tue,TH,Sat blood thinner 10/26/17 omeprazole 40 mg capsule,delayed release 40 mg PO DAILY GERD 12/06/24 sitagliptin phosphate 100 mg tablet (Januvia) 100 mg PO DAILY Diabetes 12/06/24 vitamin B complex (Complex B-100 tablet,extended release) 1 tab PO DAILY supplement 12/06/24 cephalexin 500 mg capsule 500 mg PO 3XD #15 caps 12/08/24 enalapril maleate 10 mg tablet (Vasotec) 10 mg PO DAILY blood pressure #1 TAB 12/08/24 sodium chloride 1,000 mg soluble tablet 1,000 mg PO DAILY #30 tabs 12/08/24 warfarin 1 mg tablet (Jantoven) 1 mg PO .M,W,F blood thinner #1 TAB 12/08/24 Hospital Course Operations None Procedures 2-D Echocardiogram Summary of Care Provided Minutes Spent on Discharge: 32 Hospital Course: 74-year-old white female was seen in the emergency room at [facility] with a chief complaint of chest pain that radiates into her left shoulder. By the time the patient had reached the emergency room she had no complaints of chest pain currently. Labs obtained in the emergency room showed elevated white blood cell count 14.5, INR was 1.9, sodium was 117, and glucose was 224. Troponin was unremarkable. Chest x-ray showed no evidence of acute cardiopulmonary disease and her EKG showed no evidence of acute ischemic changes. Patient was admitted to PCU for hyponatremia and chest pain, patient was placed on a fluid restriction and given normal saline. I had nephrology see the patient in consultation, she was felt to have SIADH and was placed on salt tablets. Patient's INR was subtherapeutic and she was given extra Coumadin, the following day, her INR was also subtherapeutic and she was given additional Coumadin. On her third day of hospitalization, the initial INR came back highly elevated above 14.5, this was ultimately found to be a lab error in the patient's INR was actually 3.1. Patient's son was belligerent to me when he visited the patient and told me that you do not know what you are doing. By the time I finished discussing her care with him he was apologetic. On 12/08/2024, patient was seen and examined: On examination she appeared in good health and spirits, she does not appear to be in any distress. Vital signs as documented. Skin warm and dry and without overt rashes. Neck without JVD, thyroid appears normal, trachea is midline, neck is supple. Lungs clear, normal air movement was noted. Heart exam notable for regular rhythm, normal sounds and absence of murmurs, rubs or gallops. Abdomen unremarkable and without evidence of organomegaly, masses, or abdominal aortic enlargement, bowel sounds are present in all 4 quadrants, no abdominal tenderness was noted. Extremities nonedematous, no cyanosis was noted, no clubbing was noted. Neuro: Cranial nerves II through XII are grossly intact, no focal motor deficits were noted, sensation to light touch and pinprick is intact, motor exam 5/5 throughout. Psych: Patient is alert and oriented x3, she does not appear anxious or depressed, she does not appear agitated. Patient appeared stable for discharge home on 12/08/2024. Patient was not able to undergo a Lexiscan stress test during her hospitalization due to the fact she gave a history of having facial swelling and flushing with the previous Lexiscan test. A dobutamine stress echo was not available to be done during her hospitalization and the patient was instructed to follow-up as an outpatient with her PCP and have this ordered as an outpatient. Weight / BMI Weight Weight: 107.7 kg Body Mass Index (BMI) 39.4 ABG / Lab / Microbiology Data 12/07/24 05:22 12/08/24 06:25 Laboratory: Laboratory Results - last 24 hr 12/07/24 11:34: POC Glucose 237 H 12/07/24 16:02: POC Glucose 196 H 12/07/24 21:05: POC Glucose 186 H 12/08/24 06:25: PT > 120.0 H, INR > 19.5 H*, Sodium 130 L, Potassium 4.1, Chloride 94 L, Carbon Dioxide 22.4, Anion Gap 14, BUN 9, Creatinine 0.70, Estim Creat Clear Calc 77.55, Est GFR (MDRD) Non-Af 92, BUN/Creatinine Ratio 12.2, Glucose 157 H, Calcium 8.4 12/08/24 06:29: POC Glucose 160 H D/C Instructions Discharge Diet: 1800 Calorie Control Diet Weight Bearing Status: Full weight bearing DC O2, CPAP, BIPAP Needs Home O2 Discharge instructions: No Meaningful Use Info Meaningful Use Meaningful Use Diagnoses (Choose all that apply): None applicable Discharge Plan Admission Admit Date/Time: 12/06/24 01:59 Primary Reason for Your Visit: low sodium, chest pain Attending Provider: Armando Almeida Primary Care Provider: Ruel Narayanan Consulting Providers: Malcolm Lau; Reyna Calzada Discharge Orders/Prescriptions Prescriptions: New cephalexin 500 mg Capsule 500 mg PO 3XD Qty: 15 0RF sodium chloride 1,000 mg Tablet,Soluble 1,000 mg PO DAILY Qty: 30 0RF Continued levothyroxine 125 MCG tablet 125 mcg PO DAILY warfarin [Jantoven] 2 MG tablet 2 mg PO .[place],Tue,TH,Sat albuterol sulfate [Ventolin HFA] 1 INHALER inhaler 1 - 2 puff inhalation Q4H PRN PRN (Reason: Wheezing) Qty: 1 0RF Januvia 100 mg tablet 100 mg PO DAILY omeprazole 40 mg capsule,delayed release(DR/EC) 40 mg PO DAILY Complex B-100 Tablet Extended Release 1 tab PO DAILY enalapril maleate [Vasotec] 10 MG tablet 10 mg PO DAILY Qty: 1 0RF Rx Instructions: Increase enalapril to 10 mg twice daily warfarin [Jantoven] 1 mg tablet 1 mg PO .M,W,F Qty: 1 0RF Rx Instructions: restart 12/09/24 Discontinued levofloxacin [Levaquin] 750 MG tablet 750 mg PO DAILY Referrals / Follow Up: Ruel Narayanan MD [Primary Care Provider] - Within 2 Weeks (have him recheck your sodium, he will need to set you up for an ECHO stress test with Dobutamine in order to rule out coronary disease ) Disposition Disposition (needs filled in before D/C Order can be placed): Home, Self Care Charges/Coding Visit Charges Inpatient E&M: 20629 Disch Hosp >30min
--- NOTE | 2024-12-08 12:15 | CASEMGMT ---
RN CM NOTE: Discharge order is in. RN CM to room. Pt and deny having any discharge needs or concerns. Aware Rx's have been sent to [facility] and states they can pick those up today. Also made aware to f/u with Dr Narayanan in 2 weeks and to have Na+ re-checked as well as arrangements for Echo and ST. Shanita BSN RN CM
== END 2024-12-08 13:18 | disposition home or self-care (01) | DRG 644 ==
LOC: ED 12-06 01:59 → PCU 12-06 02:13
PROVIDERS: Admitting Provider Hospitalist; Emergency Provider Emergency Medicine; PCP Family Medicine; Visit Provider Internal Medicine
DX: E22.2 Syndrome of inappropriate secretion of antidiuretic hormone (principal); Z68.41 Body mass index [BMI] 40.0-44.9, adult; I16.0 Hypertensive urgency; E11.65 Type 2 diabetes mellitus with hyperglycemia; E03.9 Hypothyroidism, unspecified; I10 Essential (primary) hypertension; E66.813 Obesity, class 3; R07.9 Chest pain, unspecified; Z79.01 Long term (current) use of anticoagulants; Z79.84 Long term (current) use of oral hypoglycemic drugs; Z79.890 Hormone replacement therapy; Z79.899 Other long term (current) drug therapy; Z86.711 Personal history of pulmonary embolism
CPT/HCPCS: 36415; 71045; 71260; 80048; 81001; 82962; 83036; 83880; 83930; 83935; 84300; 84484; 85025; 85027; 85610; 93005; 93306; 94668; 99285; Q9957; Q9967; A4216; C8929; J2405